=== PATIENT | female | born 1965 | race Caucasian/White ===

== ENCOUNTER 2022-10-17 09:28 | Inpatient (IN) | payer BC ==
[~2022-10-17 09:28] MED LIST: Clindamycin Phosphate in D5W 50 ML IV ONE; Famotidine 20 MG/2 ML SDV IVPUSH SCH; Lactated Ringers 1,000 ML IV SCH; Ropivacaine 49.25 ML, Ketorolac 30 MG, EPINEPHrine 0.5 MG, cloNIDine 80 MCG in Sodium C... INJECT SCH; Tranexamic Acid 1,000 MG in Sodium Chloride 0.9% 100 ML IV ONE
[2022-10-17] MEDS ORDERED: Clindamycin Phosphate in D5W 900 MG in Premix Bag 1 BAG IV ONE ×2 (09:30)
[2022-10-17] MEDS ORDERED: Scopolamine 1.5 MG Transdermal Patch TOP ONE (09:30)
[2022-10-17] MEDS ORDERED: Metoclopramide 10 MG/2 ML SDV IVPUSH PRN (10:15)
[2022-10-17] MEDS ORDERED: HYDROmorphone 1 MG/ML Syringe IVPUSH PRN (10:15)
[2022-10-17] MEDS ORDERED: Morphine 2 MG/ML SYRINGE IVPUSH PRN ×2 (10:15→15:41)
[2022-10-17] MEDS ORDERED: fentaNYL 50 MCG/ML SDV IVPUSH PRN (10:15)
[2022-10-17] MEDS ORDERED: Ondansetron 4 MG/2 ML SDV IVPUSH PRN ×2 (10:15→15:41)
[2022-10-17] MEDS ORDERED: Albuterol 0.083% 2.5 MG/3 ML Neb Soln NEB PRN (10:15)
[2022-10-17] MEDS ORDERED: Naloxone 0.4 MG/ML SDV IVPUSH PRN (10:15)
[2022-10-17] MEDS ORDERED: fentaNYL 100 MCG/2 ML SDV ONE (11:06)
[2022-10-17] MEDS ORDERED: Ropivacaine 0.5% 5 MG/ML 30 ML SDV ONE (11:08)
[2022-10-17] MEDS ORDERED: Propofol 200 MG/20 ML SDV ONE ×2 (11:20→15:03)
[2022-10-17] MEDS ORDERED: Dexmedetomidine 200 MCG/2 ML SDV ONE (11:21)
[2022-10-17] MEDS ORDERED: Rocuronium Bromide 50 MG/5 ML Syringe ONE ×2 (11:21→14:03)
[2022-10-17] MEDS ORDERED: Ondansetron 4 MG/2 ML SDV ONE (11:21)
[2022-10-17] MEDS ORDERED: Tranexamic Acid 1,000 MG/10 ML Vial ONE (12:12)
[2022-10-17] MEDS ORDERED: ePHEDrine 50 MG/ML SDV ONE (12:29)
[2022-10-17] MEDS ORDERED: Dexamethasone 4 MG/ML 5 ML MDV ONE (12:35)
[2022-10-17] MEDS ORDERED: Magnesium Sulfate (4.06 MEQ/ML) 5 GM/10 ML SDV ONE (12:35)
[2022-10-17] MEDS ORDERED: fentaNYL 250 MCG/5 ML SDV ONE (12:40)
[2022-10-17] MEDS ORDERED: Aluminum Hydroxide/Magnesium Hydroxide/Simethicone XS Susp 30 ML Cup PO PRN (15:41)
[2022-10-17] MEDS ORDERED: Sodium Chloride 0.9% 2.5 ML Syringe FLUSH PRN (15:41)
[2022-10-17] MEDS ORDERED: diphenhydrAMINE 25 MG Cap PO PRN (15:41)
[2022-10-17] MEDS ORDERED: oxyCODONE 5 MG Tab PO PRN (15:41)
[2022-10-17] MEDS ORDERED: Sodium Chloride 0.9% 10 ML Syringe FLUSH PRN (15:41)
[2022-10-17] MEDS ORDERED: traMADol 50 MG Tab PO PRN (15:41)
[2022-10-17] MEDS ORDERED: Bisacodyl 10 MG Supp RECTAL PRN (15:41)
[2022-10-17] MEDS: Ketorolac 30 MG/ML SDV IVPUSH SCH ×2 (17:15→22:31)
[2022-10-17] MEDS: Docusate Sodium 100 MG Cap PO SCH (20:05)
[2022-10-17] MEDS: Acetaminophen 325 MG Tab PO SCH (20:05)
[2022-10-17] MEDS: Clindamycin Phosphate in D5W 900 MG in Premix Bag 1 BAG IV SCH ×2 (20:06)
[2022-10-17] MEDS ORDERED: Metoprolol Succinate 25 MG Tab.ER PO SCH (21:00)
[2022-10-17] MEDS ORDERED: Metoprolol Tartrate 25 MG Tab PO SCH (21:00)
[2022-10-18] MEDS: Acetaminophen 325 MG Tab PO SCH ×4 (00:51→11:50)
[2022-10-18] MEDS: Ketorolac 30 MG/ML SDV IVPUSH SCH (03:33)
[2022-10-18] MEDS: Clindamycin Phosphate in D5W 900 MG in Premix Bag 1 BAG IV SCH ×2 (03:36)
[2022-10-18 06:38] LABS: CARBON DIOXIDE,CO2 25.7 mmol/L (21.0-32.0); POTASSIUM,K 4.4 mmol/L (3.5-5.1)
[2022-10-18] MEDS ORDERED: PARoxetine 20 MG Tab PO SCH (09:00)
[2022-10-18] MEDS ORDERED: Famotidine 20 MG Tab PO SCH (09:00)
[2022-10-18] MEDS ORDERED: Losartan 50 MG Tab PO SCH (09:00)
[2022-10-18] MEDS ORDERED: Polyethylene Glycol 3350 Powder 17 GM Packet PO SCH (09:00)
[2022-10-18] MEDS ORDERED: Aspirin 325 MG Tab PO SCH (09:00)
[2022-10-18] MEDS: Docusate Sodium 100 MG Cap PO SCH (09:39)
[2022-10-18] MEDS ORDERED: Ibuprofen 800 MG Tab PO PRN (11:00)
== END 2022-10-18 12:30 | disposition home or self-care (01) | DRG 325 ==
LOC: MW.SDS 09:28 → MW.MS 16:51
PROVIDERS: ADMIT Orthopaedic Surgery; ATTEND Orthopaedic Surgery
PROC: 0SPC0JZ Removal of Synthetic Substitute from Right Knee Joint, Open Approach (ICD-10-PCS; principal; 2022-10-17)
PROC: 0SRC0J9 Replacement of Right Knee Joint with Synthetic Substitute, Cemented, Open Approach (ICD-10-PCS; 2022-10-17)
DX: T84.092A Other mechanical complication of internal right knee prosthesis, initial encounter (principal); E66.01 Morbid (severe) obesity due to excess calories; Z68.43 Body mass index [BMI] 50.0-59.9, adult; I10 Essential (primary) hypertension; E78.5 Hyperlipidemia, unspecified; F41.9 Anxiety disorder, unspecified; Z96.651 Presence of right artificial knee joint; F17.210 Nicotine dependence, cigarettes, uncomplicated; F32.A Depression, unspecified; Z88.0 Allergy status to penicillin; Z87.442 Personal history of urinary calculi; Z87.19 Personal history of other diseases of the digestive system; Z90.710 Acquired absence of both cervix and uterus; Z90.89 Acquired absence of other organs; Z98.890 Other specified postprocedural states; Z91.81 History of falling; Z88.1 Allergy status to other antibiotic agents; Z88.8 Allergy status to other drugs, medicaments and biological substances; Z79.899 Other long term (current) drug therapy; Z86.010 Personal history of colon polyps; Z90.49 Acquired absence of other specified parts of digestive tract; Y83.8 Other surgical procedures as the cause of abnormal reaction of the patient, or of later complication, without mention of misadventure at the time of the procedure; Y92.89 Other specified places as the place of occurrence of the external cause
CPT/HCPCS: 36415; 73560-26-RT; 73560-RT; 80048; 83735; 85014; 85018; 86850; 86900; 86901; 97116-GP; 97161-GP; 97530-GP; A9270-GY; J0131; J0171; J0735; J1100; J1885; J2405; J2704; J2795; J3010; J3475; J3490; J7120

== ENCOUNTER 2023-02-06 07:24 | Inpatient (IN) | payer BC ==
[~2023-02-06 07:24] MED LIST changes: -Clindamycin Phosphate in D5W 50 ML IV ONE; +Famotidine 20 MG/2 ML SDV ONE; +Scopolamine 1.5 MG Transdermal Patch TRDERM SCH; -Tranexamic Acid 1,000 MG in Sodium Chloride 0.9% 100 ML IV ONE
[2023-02-06] MEDS ORDERED: Ropivacaine 0.5% 5 MG/ML 30 ML SDV ONE (07:34)
[2023-02-06] MEDS ORDERED: fentaNYL 50 MCG/ML SDV IVPUSH PRN (07:56)
[2023-02-06] MEDS ORDERED: Naloxone 0.4 MG/ML SDV IVPUSH PRN (07:56)
[2023-02-06] MEDS ORDERED: Ondansetron 4 MG/2 ML SDV IVPUSH PRN ×2 (07:56→12:01)
[2023-02-06] MEDS ORDERED: Metoclopramide 10 MG/2 ML SDV IVPUSH PRN (07:56)
[2023-02-06] MEDS ORDERED: Morphine 2 MG/ML SYRINGE IVPUSH PRN ×2 (07:56→12:01)
[2023-02-06] MEDS ORDERED: HYDROmorphone 1 MG/ML Syringe IVPUSH PRN (07:56)
[2023-02-06] MEDS ORDERED: droPERidol 5 MG/2 ML SDV IVPUSH PRN (07:56)
[2023-02-06] MEDS ORDERED: Albuterol 0.083% 2.5 MG/3 ML Neb Soln NEB PRN (07:56)
[2023-02-06] MEDS ORDERED: Tranexamic Acid 1,000 MG in Sodium Chloride 0.9% 100 ML IV SCH (08:00)
[2023-02-06] MEDS: Clindamycin Phosphate in D5W 900 MG in Premix Bag 1 BAG IV SCH ×8 (08:05→22:04)
[2023-02-06] MEDS ORDERED: Lidocaine 1% 5 ML VIAL ONE (08:49)
[2023-02-06] MEDS ORDERED: Ketamine 500 mg/10 ML MDV ONE (09:01)
[2023-02-06] MEDS ORDERED: Midazolam 1 MG/ML 2 ML SDV ONE ×2 (09:01→10:20)
[2023-02-06] MEDS ORDERED: propofoL 50 ML ONE (09:01)
[2023-02-06] MEDS ORDERED: fentaNYL 100 MCG/2 ML SDV ONE (09:01)
[2023-02-06] MEDS ORDERED: EPINEPHrine 1 MG/1 ML Amp ONE (10:03)
[2023-02-06] MEDS ORDERED: Glycopyrrolate 0.2 MG/ML SDV ONE ×2 (10:38→11:33)
[2023-02-06] MEDS ORDERED: Tranexamic Acid 1,000 MG/10 ML Vial ONE (11:33)
[2023-02-06] MEDS ORDERED: Ondansetron 4 MG/2 ML SDV ONE (11:36)
[2023-02-06] MEDS ORDERED: Phenylephrine HCl 0.5 MG/5 ML AMP ONE (11:50)
[2023-02-06] MEDS ORDERED: traMADol 50 MG Tab PO PRN (12:01)
[2023-02-06] MEDS ORDERED: Sodium Chloride 0.9% 10 ML Syringe FLUSH PRN (12:01)
[2023-02-06] MEDS ORDERED: diphenhydrAMINE 25 MG Cap PO PRN (12:01)
[2023-02-06] MEDS ORDERED: Aluminum Hydroxide/Magnesium Hydroxide/Simethicone XS Susp 30 ML Cup PO PRN (12:01)
[2023-02-06] MEDS ORDERED: Sodium Chloride 0.9% 2.5 ML Syringe FLUSH PRN (12:01)
[2023-02-06] MEDS ORDERED: Albuterol 8 GM Inhaler INH PRN (12:59)
[2023-02-06] MEDS ORDERED: Acetaminophen 325 MG Tab PO PRN (13:00)
[2023-02-06] MEDS ORDERED: Patient's Own Medication [Budesonide/Formoterol 160-4.5 MCG/Puff 6 GM Inhaler] INH PRN (13:02)
[2023-02-06] MEDS: Acetaminophen 325 MG Tab PO SCH ×3 (13:20→22:03)
[2023-02-06] MEDS: Ketorolac 30 MG/ML SDV IVPUSH SCH ×2 (13:21→19:02)
[2023-02-06 13:24] LABS: BASOPHILS PERCENT AUTO 0.2 % (0.0-1.5); EOSINOPHILS ABSOLUTE AUTO 0.1 K/uL (0.0-0.7); EOSINOPHILS PERCENT AUTO 1.1 % (0.0-7.0); HEMATOCRIT 37.2 % (36.0-46.0); HEMOGLOBIN 11.7 g/dL (12.0-16.0); LYMPHOCYTES ABSOLUTE AUTO 2.8 K/uL (0.6-2.4); LYMPHOCYTES PERCENT AUTO 31.4 % (16.0-40.0); MEAN CORPUSCULAR HEMOGLOBIN 28.5 pg (27.0-32.0); MEAN CORPUSCULAR HGB CONC 31.5 g/dL (31.0-37.0); MEAN CORPUSCULAR VOLUME 90.7 fL (80.0-98.0); MONOCYTES ABSOLUTE AUTO 0.7 K/uL (0.0-0.8); MONOCYTES PERCENT AUTO 7.4 % (0.0-15.0); NEUTROPHILS ABSOLUTE AUTO 5.2 K/uL (1.4-5.7); NEUTROPHILS PERCENT AUTO 59.9 % (48.0-80.0); PLATELET COUNT,PLT 291 K/uL (150-400); WHITE BLOOD CELL COUNT,WBC 8.76 K/uL (4.0-11.0)
[2023-02-06 13:44] LABS: CALCIUM 8.4 mg/dL (8.5-10.1); CARBON DIOXIDE,CO2 24.2 mmol/L (21.0-32.0); CREATININE 0.8 mg/dL (0.6-1.0); EST CRCL DRUG DOSING (CG) 71.5 mL/min; MAGNESIUM 1.8 mg/dL (1.8-2.4); POTASSIUM,K 4.3 mmol/L (3.5-5.1)
[2023-02-06] MEDS ORDERED: Aspirin 325 MG Tab PO SCH (17:00)
[2023-02-06] MEDS: Metoprolol Tartrate 25 MG Tab PO SCH (20:07)
[2023-02-06] MEDS: oxyCODONE 5 MG Tab PO PRN (20:08)
[2023-02-06] MEDS: Docusate Sodium 100 MG Cap PO SCH (20:08)
[2023-02-06] MEDS ORDERED: Losartan 50 MG Tab PO SCH (21:00)
[2023-02-07] MEDS: Clindamycin Phosphate in D5W 900 MG in Premix Bag 1 BAG IV SCH ×2 (00:51)
[2023-02-07] MEDS: Acetaminophen 325 MG Tab PO SCH ×3 (00:52→09:00)
[2023-02-07] MEDS: Ketorolac 30 MG/ML SDV IVPUSH SCH (00:53)
[2023-02-07] MEDS: Aspirin 325 MG Tab PO SCH ×2 (01:09→10:47)
[2023-02-07 06:43] LABS: HEMOGLOBIN 10.8 g/dL (12.0-16.0)
[2023-02-07 07:23] LABS: CALCIUM 8.5 mg/dL (8.5-10.1); CARBON DIOXIDE,CO2 22.2 mmol/L (21.0-32.0); CREATININE 0.8 mg/dL (0.6-1.0); EST CRCL DRUG DOSING (CG) 71.5 mL/min; MAGNESIUM 1.8 mg/dL (1.8-2.4); POTASSIUM,K 4.3 mmol/L (3.5-5.1)
[2023-02-07] MEDS ORDERED: Famotidine 20 MG Tab PO SCH (09:00)
[2023-02-07] MEDS ORDERED: Ibuprofen 800 MG Tab PO PRN (09:00)
[2023-02-07] MEDS ORDERED: PARoxetine 20 MG Tab PO SCH (09:00)
[2023-02-07] MEDS ORDERED: Polyethylene Glycol 3350 Powder 17 GM Packet PO SCH (09:00)
[2023-02-07] MEDS: Metoprolol Tartrate 25 MG Tab PO SCH (09:03)
[2023-02-07] MEDS ORDERED: Aspirin 325 MG Tab.EC PO SCH (09:04)
[2023-02-07] MEDS: oxyCODONE 5 MG Tab PO PRN (09:04)
[2023-02-07] MEDS: Docusate Sodium 100 MG Cap PO SCH (09:07)
== END 2023-02-07 11:10 | disposition home or self-care (01) | DRG 326 ==
LOC: MW.SDS 07:24 → MW.MS 12:56
PROVIDERS: ADMIT Orthopaedic Surgery; ATTEND Orthopaedic Surgery
PROC: 0SRD069 Replacement of Left Knee Joint with Oxidized Zirconium on Polyethylene Synthetic Substitute, Cemented, Open Approach (ICD-10-PCS; principal; 2023-02-06)
DX: M17.12 Unilateral primary osteoarthritis, left knee (principal); I10 Essential (primary) hypertension; E66.01 Morbid (severe) obesity due to excess calories; G47.30 Sleep apnea, unspecified; F17.210 Nicotine dependence, cigarettes, uncomplicated; F41.9 Anxiety disorder, unspecified; F32.A Depression, unspecified; Z68.43 Body mass index [BMI] 50.0-59.9, adult; Z86.010 Personal history of colon polyps; Z87.11 Personal history of peptic ulcer disease; Z87.442 Personal history of urinary calculi; Z79.82 Long term (current) use of aspirin; Z79.51 Long term (current) use of inhaled steroids; Z79.899 Other long term (current) drug therapy; Z88.0 Allergy status to penicillin; Z88.8 Allergy status to other drugs, medicaments and biological substances; Z91.040 Latex allergy status; Z98.890 Other specified postprocedural states; Z90.710 Acquired absence of both cervix and uterus; Z90.49 Acquired absence of other specified parts of digestive tract
CPT/HCPCS: 36415; 73560-26-LT; 73560-LT; 80048; 83735; 85014; 85018; 85025; 86850; 86900; 86901; 97110-GP; 97161-GP; 97530-GP; A9270-GY; C1776; J0131; J0171; J0735; J1885; J2250; J2370; J2405; J2704; J2795; J3010; J3490; J7030; J7120

== ENCOUNTER 2024-08-28 09:39 | Day surgery (SDC) | payer BC ==
[2024-08-28] MEDS: Lactated Ringers 1,000 ML IV SCH (10:15)
[2024-08-28] MEDS ORDERED: propofoL 500 MG/50 ML 50 ML ONE (10:34)
[2024-08-28] MEDS ORDERED: dexmedeTOMIDine HCl 200 MCG/2 ML SDV ONE (10:37)
[2024-08-28] MEDS ORDERED: Water For Injection, Sterile 20 ML ONE (10:37)
[2024-08-28] MEDS ORDERED: Propofol 200 MG/20 ML SDV ONE (11:44)
[2024-08-28] MEDS ORDERED: Lactated Ringers 1,000 ML IV SCH (12:15)
== END 2024-08-28 13:15 | disposition home or self-care (01) ==
LOC: MW.SDS 09:39
PROVIDERS: ATTEND Surgery
DX: D12.8 Benign neoplasm of rectum (principal); I10 Essential (primary) hypertension; E66.01 Morbid (severe) obesity due to excess calories; Z68.42 Body mass index [BMI] 45.0-49.9, adult; E03.9 Hypothyroidism, unspecified; F17.210 Nicotine dependence, cigarettes, uncomplicated; Z79.890 Hormone replacement therapy; Z79.899 Other long term (current) drug therapy; Z88.0 Allergy status to penicillin; Z86.0100 Personal history of colon polyps, unspecified; Z80.0 Family history of malignant neoplasm of digestive organs; K57.30 Diverticulosis of large intestine without perforation or abscess without bleeding
CPT/HCPCS: 45385; J2704; J7120; 00811; J3490